=== PATIENT | female | born 1970 | race Caucasian/White ===

== ENCOUNTER → 2021-11-23 | Day surgery (SDC) | payer OTHER ==
[~2021-11-23] VITALS: Ht 167.6 cm; Wt 94.8 kg
[~2021-11-23] MED LIST: CLONIDINE1 EAC1 TD; NORCO 5/3251 EACH PO; TRULICITY0.75 MG/0. SC
[2021-11-23 11:29] LABS: HCT 42.5 % (37.0-47.0); HGB 14.6 g/dl (12.5-16.0); MCH 31.1 pg (25.0-31.0); MCHC 34.4 g/dL (32.0-36.0); MCV 90.4 fL (78.0-100.0); MPV 9.8 fL (6.0-9.5); RBC 4.7 M/uL (4.20-5.40); RDW 12.8 % (11.5-14.0); WBC 8.3 K/uL (4.0-10.5)
[2021-11-23 12:02] LABS: BUN/CREAT RATIO (CALC) 24.6 RATIO; CREATININE 0.57 mg/dL (0.51-0.95); POTASSIUM 4.1 mmol/L (3.5-5.1)
== END | disposition home or self-care (01) ==
LOC: FAS 10:47
PROVIDERS: Anesthesiology
DX: M19.011 Primary osteoarthritis, right shoulder (principal); M75.41 Impingement syndrome of right shoulder; S43.431A Superior glenoid labrum lesion of right shoulder, initial encounter; M75.111 Incomplete rotator cuff tear or rupture of right shoulder, not specified as traumatic; Z96.652 Presence of left artificial knee joint; X58.XXXA Exposure to other specified factors, initial encounter
CPT/HCPCS: 36415; 80048; 93005; J0171; J0690; J1100; J2250; J2405; J2704; J2795; J7120